=== PATIENT | male | born 1990 | race Native Hawaiian/Other Pacific Islander ===

== ENCOUNTER 2020-02-15 18:30 | Emergency (ER) | payer OTHER ==
[~2020-02-15] VITALS: Ht 182.9 cm; Wt 79.4 kg
[2020-02-15] MEDS ORDERED: DIVA500T2 (19:06)
[2020-02-15 20:20] VITALS: BP 130/88; TEMP 100.1
== END 2020-02-15 20:30 | disposition home or self-care (01) ==
LOC: ED 18:36
PROC: 0HQ1XZZ Repair Face Skin, External Approach (ICD-10-PCS; principal; 2020-02-15)
DX: S00.03XA Contusion of scalp, initial encounter (principal); S01.81XA Laceration without foreign body of other part of head, initial encounter; Y04.2XXA Assault by strike against or bumped into by another person, initial encounter; Y08.89XA Assault by other specified means, initial encounter; Y92.149 Unspecified place in prison as the place of occurrence of the external cause
CPT/HCPCS: 90471; 99283; J7040